=== PATIENT | male | born 1940 | race Caucasian/White ===

== ENCOUNTER 2017-03-23 12:37 | Emergency (ER) | payer MEDICARE ==
[2017-03-23 13:07] LABS: BASOPHILS 0.2 % (0-2); EOSINOPHILS 1.6 % (0-7); HEMOGLOBIN 18.7 g/dL (13.5-17.5); IMMATURE GRANULOCYTES 0.2 % (0-5); LYMPHOCYTES 16.7 % (15-50); MCH 30.4 pg (26.0-34.0); MCV 89.3 fL (80.0-100.0); MEAN PLATELET VOLUME 10.4 fL (7.4-10.4); MONOCYTES 9.9 % (2-11); NEUTROPHILS 71.4 % (40-80); PLATELET COUNT 142 10x3/uL (130-400); RBC 6.16 10x6/uL (4.20-6.10); WBC 6.5 10x3/uL (4.8-10.8)
[2017-03-23 13:28] LABS: ALBUMIN 3.8 g/dL (3.4-5.0); ALKALINE PHOSPHATASE 96 U/L (46-116); ALT (SGPT) 36 U/L (10-68); BILIRUBIN - TOTAL 0.86 mg/dL (0.2-1.3); CALC OSMOLALITY 275 mosm/kg (275-300); CARBON DIOXIDE 30.6 mmol/L (21.0-32.0); CHLORIDE - SERUM 100 mmol/L (98-107); CREATININE - SERUM 0.8 mg/dL (0.6-1.3); GLUCOSE 94 mg/dL (74-106); POTASSIUM - SERUM 5.3 mmol/L (3.5-5.1); PROTEIN - SERUM 7.4 g/dL (6.4-8.2); SODIUM 137 mmol/L (136-145); UREA NITROGEN 18 mg/dL (7-18); eGFR NON AFRICAN AMERICAN > 90 mL/min (90-120)
== END 2017-03-23 17:39 | disposition home or self-care (01) ==
LOC: D.ER 12:37
PROVIDERS: Family Medicine
DX: J44.1 Chronic obstructive pulmonary disease with (acute) exacerbation (principal); J20.9 Acute bronchitis, unspecified; F17.200 Nicotine dependence, unspecified, uncomplicated

== ENCOUNTER → 2017-07-17 19:47 | Outpatient (CLI) | payer MEDICARE | END | disposition home or self-care (01) | LOC: D.SLEEP 19:47 | DX: G47.33 Obstructive sleep apnea (adult) (pediatric) (principal) ==

== ENCOUNTER → 2017-08-02 12:34 | Outpatient (CLI) | payer MEDICARE | END | disposition home or self-care (01) | LOC: D.RAD 12:34 | DX: R13.10 Dysphagia, unspecified (principal) ==

== ENCOUNTER → 2017-08-28 12:21 | Outpatient (CLI) | payer MEDICARE ==
[2017-08-31 03:12] LABS: IMMUNOGLOBULIN E 43 IU/mL (0-100)
== END | disposition home or self-care (01) ==
LOC: D.LAB 08-27 13:00 → D.RT 08-27 14:00
PROVIDERS: Internal Medicine Pulmonary Disease
DX: J44.9 Chronic obstructive pulmonary disease, unspecified (principal)

== ENCOUNTER → 2017-11-16 10:52 | Outpatient (CLI) | payer MEDICARE ==
[2017-11-20 09:18] LABS: ANA REFLEX - DIRECT Negative (Negative)
[2017-11-20 17:12] LABS: ANCA - ANTIMYELOPEROXIDASE <9.0 U/mL (0.0-9.0); ANCA - ANTIPROTEINASE 3 <3.5 U/mL (0.0-3.5); ANCA - ATYPICAL <1:20 titer (Neg:<1:20); ANCA - CYTOPLASMIC <1:20 titer (Neg:<1:20); ANCA - PERINUCLEAR <1:20 titer (Neg:<1:20)
== END | disposition home or self-care (01) ==
LOC: D.LAB 10:15 → D.CT 11:00
PROVIDERS: Internal Medicine Pulmonary Disease
DX: J84.9 Interstitial pulmonary disease, unspecified (principal)

== ENCOUNTER → 2018-05-20 08:36 | Outpatient (CLI) | payer MEDICARE | END | disposition home or self-care (01) | LOC: D.RT 08:36 | DX: J84.9 Interstitial pulmonary disease, unspecified (principal); J44.9 Chronic obstructive pulmonary disease, unspecified ==

== ENCOUNTER 2018-06-26 13:45 | Inpatient (IN) | payer MEDICARE ==
[~2018-06-26] VITALS: Ht 180.3 cm; Wt 97.5 kg
[2018-06-26] MEDS ORDERED: CARDIZEM LA180 MG PO (13:54)
[2018-06-26] MEDS ORDERED: SINGULAIR10 MG PO (13:55)
[2018-06-26] MEDS ORDERED: ALBUTEROL2.5 MG/3 M (13:56)
[2018-06-26] MEDS ORDERED: MUCINEX DM ER1 EAC1 (13:56)
[2018-06-26] MEDS ORDERED: [UNRECOGNIZED DRUG - OTHER] (13:56)
[2018-06-26] MEDS ORDERED: BAYER CHEWABLE81 MG PO (13:57)
[2018-06-26 14:53] LABS: BASOPHILS 0.2 % (0-2); EOSINOPHILS 0.7 % (0-7); HEMATOCRIT 48.2 % (42.0-54.0); HEMOGLOBIN 15.9 g/dL (13.5-17.5); IMMATURE GRANULOCYTES 0.3 % (0-5); LYMPHOCYTES 10.9 % (15-50); MCH 28.6 pg (26.0-34.0); MCV 86.7 fL (80.0-100.0); MEAN PLATELET VOLUME 10.2 fL (7.4-10.4); MONOCYTES 8.6 % (2-11); NEUTROPHILS 79.3 % (40-80); PLATELET COUNT 145 10x3/uL (130-400); RBC 5.56 10x6/uL (4.20-6.10); RDW 15.2 % (11.5-14.5); WBC 12.4 10x3/uL (4.8-10.8)
[2018-06-26 14:55] VITALS: BP 123/52
[2018-06-26 15:22] LABS: APTT 31.4 SECONDS (22.8-39.4); INR 1.08 (0.85-1.17); PROTIME 13.5 SECONDS (11.6-15.0)
[2018-06-26 15:45] LABS: ALBUMIN 3.1 g/dL (3.4-5.0); ALKALINE PHOSPHATASE 70 U/L (46-116); ALT (SGPT) 26 U/L (10-68); BILIRUBIN - TOTAL 0.69 mg/dL (0.2-1.3); CALC OSMOLALITY 268 mosm/kg (275-300); CALCIUM 8.5 mg/dL (8.5-10.1); CARBON DIOXIDE 28.8 mmol/L (21.0-32.0); CHLORIDE - SERUM 96 mmol/L (98-107); CREATININE - SERUM 0.8 mg/dL (0.6-1.3); GLUCOSE 99 mg/dL (74-106); POTASSIUM - SERUM 4.3 mmol/L (3.5-5.1); PROTEIN - SERUM 6.9 g/dL (6.4-8.2); SODIUM 135 mmol/L (136-145); UREA NITROGEN 10 mg/dL (7-18); eGFR NON AFRICAN AMERICAN > 90 mL/min (90-120)
[2018-06-26 15:56] LABS: CKMB 1.4 U/L (0.0-3.6); CREATINE KINASE 101 UL (21-232); PRO BNP 305 pg/mL (0-450)
[2018-06-26 15:57] LABS: TROPONIN-I < 0.017 ng/mL (0.000-0.060)
[2018-06-26 16:01] VITALS: BP 113/50
[2018-06-26 17:35] VITALS: BP 117/63
--- NOTE | 2018-06-26 19:23 | NUR ---
PT RESTING IN BED. REFUSED MIRALAX. O2 @2 LITERS. NO S/S OF ACUTE DISTRESS. CL IN PLACE.
[2018-06-26 20:10] VITALS: BP 108/61
--- NOTE | 2018-06-26 23:27 | NUR ---
rec'd in bed talking on phone expiratory wheezing note chest bilat.02 2l nc no resp. distress observed. will continue to monitor for any chges and follow current plan of care.
[2018-06-27 01:01] VITALS: BP 97/64
--- NOTE | 2018-06-27 01:56 | NUR ---
I have reviewed this patient and I concur with the Shift Assessment completed by the Licensed Practical Nurse today this shift.
[2018-06-27 04:13] LABS: BASOPHILS 0.1 % (0-2); EOSINOPHILS 0 % (0-7); HEMATOCRIT 48.9 % (42.0-54.0); HEMOGLOBIN 16.2 g/dL (13.5-17.5); IMMATURE GRANULOCYTES 0.2 % (0-5); LYMPHOCYTES 4.5 % (15-50); MCH 28.6 pg (26.0-34.0); MCHC 33.1 g/dL (31.0-37.0); MCV 86.2 fL (80.0-100.0); MEAN PLATELET VOLUME 10.6 fL (7.4-10.4); NEUTROPHILS 94.2 % (40-80); PLATELET COUNT 147 10x3/uL (130-400); RBC 5.67 10x6/uL (4.20-6.10); WBC 10.1 10x3/uL (4.8-10.8)
[2018-06-27 04:26] LABS: CALC OSMOLALITY 276 mosm/kg (275-300); CALCIUM 8.8 mg/dL (8.5-10.1); CARBON DIOXIDE 31.1 mmol/L (21.0-32.0); CHLORIDE - SERUM 97 mmol/L (98-107); GLUCOSE 185 mg/dL (74-106); POTASSIUM - SERUM 4.4 mmol/L (3.5-5.1); SODIUM 136 mmol/L (136-145); UREA NITROGEN 13 mg/dL (7-18); eGFR NON AFRICAN AMERICAN 77 mL/min (90-120)
[2018-06-27 04:45] VITALS: BP 112/70
--- NOTE | 2018-06-27 07:46 | NUR ---
PT SITTING UP IN CHAIR. O2@2 LITERS NC. NO S/S OF ACUTE DISTRESS. CL IN PLACE.
[2018-06-27 09:23] VITALS: BP 121/65
[2018-06-27 12:17] VITALS: Ht 180.3 cm; Wt 97.5 kg
[2018-06-27 12:22] VITALS: BP 112/59
[2018-06-27 14:37] LABS: APPEARANCE CLEAR (CLEAR); COLOR YELLOW (YELLOW); GLUCOSE NEGATIVE (NEGATIVE); KETONE NEGATIVE (NEGATIVE); NITRITE NEGATIVE (NEGATIVE); PROTEIN TRACE mg/dL (NEGATIVE); SPECIFIC GRAVITY 1.015 (1.005-1.020)
[2018-06-27 14:38] LABS: BACTERIA MODERATE /hpf (NONE SEEN); BILIRUBIN NEGATIVE (NEGATIVE); EPITHELIAL CELLS 0-5 /hpf (0-5); MUCUS <1+ /lpf (NONE SEEN); RED CELLS - URINE RARE /hpf (0-5); UROBILINOGEN NORMAL (NORMAL); WHITE CELLS - URINE 0-5 /hpf (0-5)
[2018-06-27 17:53] VITALS: BP 112/58
--- NOTE | 2018-06-27 18:00 | NUR ---
PT SITTING UP IN CHAIR EATING DINNER. AT BEDSIDE. NO S/S OF ACUTE DISTRESS. CL IN PLACE.
[2018-06-27 21:57] VITALS: BP 108/55
[2018-06-28 05:01] LABS: BASOPHILS 0.1 % (0-2); EOSINOPHILS 0 % (0-7); HEMATOCRIT 44.9 % (42.0-54.0); IMMATURE GRANULOCYTES 0.4 % (0-5); LYMPHOCYTES 5.6 % (15-50); MCH 28.5 pg (26.0-34.0); MCHC 33.4 g/dL (31.0-37.0); MCV 85.2 fL (80.0-100.0); MEAN PLATELET VOLUME 11.1 fL (7.4-10.4); MONOCYTES 4.1 % (2-11); NEUTROPHILS 89.8 % (40-80); RBC 5.27 10x6/uL (4.20-6.10); WBC 11.2 10x3/uL (4.8-10.8)
[2018-06-28 05:02] LABS: PLATELET COUNT 194 10x3/uL (130-400)
[2018-06-28 05:05] VITALS: BP 100/40
[2018-06-28 05:35] LABS: ANION GAP 11.4 mmol/L (8-16); CALCIUM 8.3 mg/dL (8.5-10.1); CARBON DIOXIDE 29.7 mmol/L (21.0-32.0); CREATININE - SERUM 1.1 mg/dL (0.6-1.3); POTASSIUM - SERUM 4.1 mmol/L (3.5-5.1)
--- NOTE | 2018-06-28 08:02 | NUR ---
AWAKE AND ALERT. ORIENTED X3. NO C/O AT THIS TIME. LUNGS ARE CLEAR BUT DIMINISHED IN LOWER LOBES, NON PRODUCTIVE COUGH NOTED.SKIN IS INTACT WITHOUT REDNESS. SL TO RIGHT WRIST IS PATENT WITHOUT REDNESS AT INSERTION SITE. SITTING UP IN CHIAR AT BEDSIDE. DENIESNEEDS.
[2018-06-28 09:30] VITALS: BP 112/54
--- NOTE | 2018-06-28 09:30 | NUR ---
ATE ALL OF BREAKFAST. DENIES NEEDS. UP AT SINK PERFORMING ADL'S PER SELF.
--- NOTE | 2018-06-28 13:00 | NUR ---
RESTING QUIETLY IN BED. ATE MOST OF LUNCH. VISITOR AT BEDSIDE.
[2018-06-28 13:31] VITALS: BP 132/62
--- NOTE | 2018-06-28 15:03 | EC ---
PATIENT:MEL CAI DATE OF SERVICE: 06/26/18 SEX: M MEDICAL RECORD: [id number] DATE OF : 44 LOCATION:D.[facility] AGE OF PATIENT: 77 ADMISSION DATE: 06/26/18 REFERRING PHYSICIAN: INTERPRETING PHYSICIAN: VERNA BUNN MD ECHOCARDIOGRAM REPORT ECHO CHARGES 4 ECHO COMPLETE Date: 06/27/18 CLINICAL DIAGNOSIS: PULMONARY EDEMA/LV FUN HX OF CARIOMYOPATHY ECHOCARDIOGRAPHIC MEASUREMENTS (adult normal given) AC root (d.<3.7cm) 4.2 cm LV Septum d (<1.2 cm> 1.9 cm Valve Excursion 2.0 cm LV Septum (systole) 2.0 cm Left Atria (s.<4.0cm> 3.8 cm LVPW d(<1.2cm) 2.0 cm RV (d.<2.3cm) 4.6 cm LVPW (sytole) 2.3 cm LV diastole(<5.6CM) 6.2 cm MV E-F(>70mm/sec) cm LV systole 4.1 cm LVOT Diameter 2.5 cm MV exc.(>10mm) 2.0 cm Est.ejection fraction (50-75%) % DOPPLER: LVIT cm/sec A 75.0 cm/sec E 41.0 cm/sec LA cm/sec RVSP 17 mmHg LVOT 86 cm/sec AOP1/2T m/s Asc. Ao 115 cm/sec RVOT 101 cm/sec RA cm/sec PA 109 cm/sec AV Gradient Peak 5.25 mmHg AV Mean 2.53 mmHg AV Area 3.2 cm MV Gradient Peak 4.30 mmHg MV Mean 1.88 mmHg MV Area cm COMMENTS: Biologist Aide: Felicita MALDONADO Runner Worker: Lida Bunn TAPE# PACS Pericardial Effusion N DATE OF SERVICE: 06/27/2018 FINDINGS: 1. Left ventricular chamber size is within normal limits. Left ventricular systolic function is normal. Overall ejection fraction estimated at 55%. 2. Left atrium is within normal limits at 3.8 cm. Right atrium and right ventricular chamber sizes are mildly dilated. 3. Valvular structures have normal structure and motion. 4. Doppler interrogation reveals trace tricuspid regurgitation. No other valvular insufficiency or stenosis. Pulmonary systolic pressure is normal, ECHOCARDIOGRAM REPORT [id number] MEL CAI estimated at 17 mmHg. 5. No evidence of pericardial effusion or left ventricular thrombus. TRANSINT:[id number] Voice Confirmation ID: [id number] DOCUMENT ID: [id number] VERNA BUNN MD at 1503 CC: [id number] DICTATION DATE: 06/28/1807 GARDENING MANAGER: 06/28/18 1126 ADM IN [place] [id number] [place] [address]
--- NOTE | 2018-06-28 18:38 | NUR ---
REFUSED SUPPER TRAY. REQUESTED A PB&J SANDWICH. KITCHEN NOTIFIED. NO CHANGES NOTED. DENIES NEEDS. AT BEDSIDE.
[2018-06-28 19:00] VITALS: BP 120/56
--- NOTE | 2018-06-28 19:49 | NUR ---
PT ALERT AND ORIENTED AND UP AND CHAIR WHEN ENTERING THE ROOM. PT WEARING NASAL CANNULA AT 3 L. PT DOES GET OUT OF BREATH WHEN TALKING. LUNGS PRESENT WITH EXPIRATORY WHEEZES BILATERALLY. PT HAS INCENTIVE SPIROMETER ON BED SIDE TABLE. RETURN DEMONSTRATES HOW TO USE. RIGHT FOREARM IV SALINE LOCKED. NO COMPLAINTS OF PAIN AT THIS TIME. CPOC.
[2018-06-29] VITALS (7 sets, daily range): BP systolic 115–128; BP diastolic 45–60
--- NOTE | 2018-06-29 03:30 | NUR ---
I have reviewed this patient and I concur with the Shift Assessment completed by the Licensed Practical Nurse today this shift.
[2018-06-29 06:24] LABS: BASOPHILS 0 % (0-2); EOSINOPHILS 0 % (0-7); HEMATOCRIT 46.3 % (42.0-54.0); HEMOGLOBIN 15.3 g/dL (13.5-17.5); IMMATURE GRANULOCYTES 0.4 % (0-5); MCH 28.3 pg (26.0-34.0); MCV 85.6 fL (80.0-100.0); MEAN PLATELET VOLUME 10.7 fL (7.4-10.4); MONOCYTES 3.3 % (2-11); NEUTROPHILS 92.3 % (40-80); PLATELET COUNT 220 10x3/uL (130-400); RBC 5.41 10x6/uL (4.20-6.10); RDW 15.3 % (11.5-14.5); WBC 12.2 10x3/uL (4.8-10.8)
[2018-06-29 06:39] LABS: CALC OSMOLALITY 283 mosm/kg (275-300); CALCIUM 8.6 mg/dL (8.5-10.1); CARBON DIOXIDE 28.4 mmol/L (21.0-32.0); CHLORIDE - SERUM 100 mmol/L (98-107); CREATININE - SERUM 0.9 mg/dL (0.6-1.3); GLUCOSE 190 mg/dL (74-106); POTASSIUM - SERUM 4.3 mmol/L (3.5-5.1); SODIUM 137 mmol/L (136-145); UREA NITROGEN 26 mg/dL (7-18); eGFR NON AFRICAN AMERICAN 87 mL/min (90-120)
--- NOTE | 2018-06-29 08:00 | NUR ---
PT AAOX4 RESP EVEN AND NONLABORED NO SIGNS OF DISTRESS NOTED, PT C/O OF PAIN I EXPRESSED TO PT ON USE OF DIRECTOR OF TRAINING PUMP AGAIN, HE STATES "NOTHING IS HELPING HIS PAIN" I EXPRESSED TO THE PT THAT I WOULD TALK TO THE DR AND SEE WHAT ELSE COULD BE DONE CL IN REACH
--- NOTE | 2018-06-29 08:00 | NUR ---
PT AAOX4 RESP EVEN AND NONLABORED, NO SIGNS OF DISTRESS NOTED CL IN REACH WILL CONTINUE TO MONITOR
--- NOTE | 2018-06-29 18:39 | NUR ---
I have reviewed this patient and I concur with the Shift Assessment completed by the Licensed Practical Nurse today this shift.
--- NOTE | 2018-06-29 19:30 | NUR ---
PT ALERT AND ORIENTED WHEN ENTERING THE ROOM. UP IN CHAIR. LUNGS PRESENT WITH SLIGHT EXPIRATORY WHEEZES. PT HAS FREQUENT PRODUCTIVE COUGH. WEARING 3 L NC. RIGHT FOREARM IV FINISHING LEVAQUIN INFUSION. COMPLAINTS OF SORE THROAT. SPOKE WITH PT ABOUT NEW ORDER FOR CLORASEPTIC SPRAY. CALL LIGHT IN REACH.
[2018-06-30] VITALS: BP 121/63; BP 130/61
[2018-06-30 03:00] VITALS: BP 127/46
[2018-06-30 05:27] LABS: BASOPHILS 0 % (0-2); EOSINOPHILS 0 % (0-7); HEMATOCRIT 47.3 % (42.0-54.0); HEMOGLOBIN 15.5 g/dL (13.5-17.5); IMMATURE GRANULOCYTES 0.8 % (0-5); LYMPHOCYTES 5.6 % (15-50); MCH 28.5 pg (26.0-34.0); MCHC 32.8 g/dL (31.0-37.0); MCV 87.1 fL (80.0-100.0); MEAN PLATELET VOLUME 10.4 fL (7.4-10.4); MONOCYTES 3.1 % (2-11); NEUTROPHILS 90.5 % (40-80); PLATELET COUNT 220 10x3/uL (130-400); RBC 5.43 10x6/uL (4.20-6.10); RDW 15.2 % (11.5-14.5); WBC 11.2 10x3/uL (4.8-10.8)
[2018-06-30 05:49] LABS: CALC OSMOLALITY 287 mosm/kg (275-300); CALCIUM 8.6 mg/dL (8.5-10.1); CARBON DIOXIDE 30.4 mmol/L (21.0-32.0); CHLORIDE - SERUM 103 mmol/L (98-107); CREATININE - SERUM 0.8 mg/dL (0.6-1.3); GLUCOSE 169 mg/dL (74-106); POTASSIUM - SERUM 4.3 mmol/L (3.5-5.1); SODIUM 141 mmol/L (136-145); UREA NITROGEN 20 mg/dL (7-18); eGFR NON AFRICAN AMERICAN > 90 mL/min (90-120)
[2018-06-30 08:35] VITALS: BP 136/62
[2018-06-30 13:21] VITALS: BP 123/72
[2018-06-30 17:30] VITALS: BP 101/52
--- NOTE | 2018-06-30 19:19 | NUR ---
PT IN CHAIR AT BEDSIDE. SALINE LOCKED IV PER REQUEST. PT DENIES FURTHER NEEDS AT THIS TIME.
[2018-06-30 20:00] VITALS: BP 117/58
--- NOTE | 2018-07-01 02:09 | NUR ---
I have reviewed this patient and I concur with the Shift Assessment completed by the Licensed Practical Nurse today this shift.
[2018-07-01 03:00] VITALS: BP 142/79
[2018-07-01 03:53] LABS: BASOPHILS 0.1 % (0-2); EOSINOPHILS 0.6 % (0-7); HEMATOCRIT 50.9 % (42.0-54.0); HEMOGLOBIN 16.6 g/dL (13.5-17.5); IMMATURE GRANULOCYTES 1.5 % (0-5); LYMPHOCYTES 5.7 % (15-50); MCH 28.3 pg (26.0-34.0); MCHC 32.6 g/dL (31.0-37.0); MCV 86.9 fL (80.0-100.0); MEAN PLATELET VOLUME 10.6 fL (7.4-10.4); MONOCYTES 3.7 % (2-11); NEUTROPHILS 88.4 % (40-80); PLATELET COUNT 189 10x3/uL (130-400); RBC 5.86 10x6/uL (4.20-6.10); RDW 15.2 % (11.5-14.5); WBC 10.4 10x3/uL (4.8-10.8)
[2018-07-01 03:56] LABS: CALC OSMOLALITY 278 mosm/kg (275-300); CALCIUM 8.6 mg/dL (8.5-10.1); CARBON DIOXIDE 32.3 mmol/L (21.0-32.0); CHLORIDE - SERUM 99 mmol/L (98-107); CREATININE - SERUM 0.9 mg/dL (0.6-1.3); GLUCOSE 188 mg/dL (74-106); POTASSIUM - SERUM 4.5 mmol/L (3.5-5.1); SODIUM 135 mmol/L (136-145); UREA NITROGEN 24 mg/dL (7-18); eGFR NON AFRICAN AMERICAN 87 mL/min (90-120)
--- NOTE | 2018-07-01 06:20 | NUR ---
PT IN CHAIR. DENIES NEEDS
[2018-07-01 08:44] VITALS: BP 160/70
[2018-07-01 13:15] VITALS: BP 134/79
--- NOTE | 2018-07-01 13:33 | NUR ---
NUTRITION F/U PT TOLERATING AHA DIET. 50 TO 75% INTAKE RECENT MEALS. WILL CONTINUE TO PROVIDE DIET, MONITOR PO INTAKE. RD FOLLOWING
[2018-07-01 16:30] VITALS: BP 136/74
[2018-07-01 21:35] VITALS: BP 110/61
[2018-07-02 00:39] VITALS: BP 136/57
--- NOTE | 2018-07-02 03:21 | NUR ---
REC'D AT CHGE OF SHIFT SITTING UP BEDSIDE CHAIR WATCHING TV.DENIES ANY RESP. DIFFICULTY AT PRESENT TIME STATES FEELS SO MUCH BETTER. WILL CONTINUE TO MONITOR FOR ANY CHGES AND FOLLOE CURRENT PLAN OF CARE
[2018-07-02 04:44] VITALS: BP 145/73
--- NOTE | 2018-07-02 04:56 | NUR ---
I have reviewed this patient and I concur with the Shift Assessment completed by the Licensed Practical Nurse today this shift.
[2018-07-02 05:17] LABS: BASOPHILS 0.1 % (0-2); EOSINOPHILS 0 % (0-7); HEMATOCRIT 50.3 % (42.0-54.0); HEMOGLOBIN 16.9 g/dL (13.5-17.5); IMMATURE GRANULOCYTES 2.2 % (0-5); LYMPHOCYTES 4.8 % (15-50); MCH 28.7 pg (26.0-34.0); MCHC 33.6 g/dL (31.0-37.0); MCV 85.4 fL (80.0-100.0); MEAN PLATELET VOLUME 10.2 fL (7.4-10.4); MONOCYTES 2.7 % (2-11); NEUTROPHILS 90.2 % (40-80); PLATELET COUNT 225 10x3/uL (130-400); RBC 5.89 10x6/uL (4.20-6.10); RDW 14.8 % (11.5-14.5)
[2018-07-02 05:38] LABS: ALBUMIN 2.9 g/dL (3.4-5.0); ANION GAP 10.5 mmol/L (8-16); BILIRUBIN - TOTAL 0.44 mg/dL (0.2-1.3); CALCIUM 8.2 mg/dL (8.5-10.1); CARBON DIOXIDE 31.7 mmol/L (21.0-32.0); CREATININE - SERUM 1.1 mg/dL (0.6-1.3); MAGNESIUM - SERUM 2.1 mg/dL (1.8-2.4); POTASSIUM - SERUM 4.2 mmol/L (3.5-5.1); PROTEIN - SERUM 6.3 g/dL (6.4-8.2)
--- NOTE | 2018-07-02 07:43 | NUR ---
PT ALERT X 4. EXPIRATORY WHEEZES TO ALL PADILLA, 2L O2 PER NC. TELEMETRY IN PLACE. IV TO LEFT WRIST, PATENT, DRESSING CLEAN DRY AND INTACT. +1 EDMEMA TO BLE. PT SITTING UP IN CHAIR. REPORTING NO PAIN AT THIS TIME. BED LOW, CALL LIGHT IN REACH. NO OTHER NEEDS AT THIS TIME.
--- NOTE | 2018-07-02 07:57 | MORECARE ---
CASE MANAGEMENT DISCHARGE SUMMARY PATIENT: MEL CAI UNIT: [id number] ADM DATE: 06/26/18 AGE: 77 : 42 SEX: M ROOM/BED: D.2202 AUTHOR: HARVINDER LYNNE PHYSICIAN: REFERRING PHYSICIAN: RAGHAV VILLANUEVA MD DATE OF SERVICE: 07/02/18 Discharge Plan Patient Name: MEL CAI [facility] [facility] 1940 Planned Disposition: Home or Self Care Anticipated Discharge Date: Discharge Date: Expected LOS: Initial Reviewer: [email or web address] Initial Review Date: 06/26/2018 Generated: 07/02/18 8:57 am DCPIA - Discharge Planning Initial Assessment Updated by [email or web address]: Pat Oliveira on 07/02/18 7:56 am * Is the patient Alert and Oriented? Yes * How many steps to enter\exit or inside your home? few * PCP DR MALENA MERRITT IN [place] * Pharmacy [facility] * Preadmission Environment Home with Family * ADLs Independent * Equipment Nebulizer Oxygen * Other Equipment CONCENTRATOR * List name and contact numbers for known caregivers / representatives who currently or will assist patient after discharge: ZAKI CAI () [phone] * Verbal permission to speak to the caregivers and representatives has been obtained from the patient. N/A * Community resources currently utilized None * Additional services required to return to the preadmission environment? No * Can the patient safely return to the preadmission environment? Yes * Has this patient been hospitalized within the prior 30 days at any hospital? No Patient Name: MEL CAI Page [phone] at 0757 All edits/amendments must be made on the electronic document DICTATION DATE: 07/02/18756 BILLING SPECIALIST: SKIP 07/02/18756 RPT#: [id number] DC DATE: STATUS: ADM IN [facility] [address] [place] [address] END OF REPORT
--- NOTE | 2018-07-02 08:04 | MORECARE ---
CASE MANAGEMENT DISCHARGE SUMMARY PATIENT: MEL CAI UNIT: [id number] ADM DATE: 06/26/18 AGE: 77 : 42 SEX: M ROOM/BED: D.2202 AUTHOR: MAGED,DOC PHYSICIAN: REFERRING PHYSICIAN: RAGHAV VILLANUEVA MD DATE OF SERVICE: 07/02/18 Discharge Plan Patient Name: MEL ACI Facility: [facility]:[place] : 1940 Planned Disposition: Home or Self Care Anticipated Discharge Date: Discharge Date: Expected LOS: Initial Reviewer: [email or web address] Initial Review Date: 06/26/2018 Generated: 07/02/18 9:03 am Comments DCP- Discharge Planning Updated by [email or web address]: Pat Oliveira on 07/02/18 7:[address] Patient Name: MEL CAI Admission Status: ER Accout number: [id number] Admission Date: 06-26-2018 : 1940 Admission Diagnosis:FEVER, UNSPECIFIED Attending: RAGHAV VILLANUEVA Current LOS: 6 Anticipated DC Date: Planned Disposition: Home or Self Care Primary Insurance: [employer] ADV Discharge Planning Comments: CM met with patient to complete initial dc planning assessment. CM educated patient on the CM role and verbal consent given by patient to complete assessment. Patient lives at home with his where he is independent with his care. At discharge patient plans to return home and feels this is a safe discharge. CM discussed availability of home health, rehab services, and medical equipment. Patient stated that he has portable O2 concentrator and a O2 concentrator at home also a nebulizer. He was short of breath talking to me when I did his assessment. Patient denied known discharge needs at this time & did not want home health. CM will continue to follow and will assist as needed with dc plans/needs. Banking Officer: Pat Oliveira DCPIA - Discharge Planning Initial Assessment Updated by [email or web address]: Pat Oliveira on 07/02/18 7:56 am * Is the patient Alert and Oriented? Yes * How many steps to enter\exit or inside your home? few * PCP DR MALENA MERRITT IN [place] * Pharmacy [facility] * Preadmission Environment Home with Family * ADLs Independent * Equipment Nebulizer Oxygen * Other Equipment CONCENTRATOR * List name and contact numbers for known caregivers / representatives who currently or will assist patient after discharge: ZAKI CAI () [phone] * Verbal permission to speak to the caregivers and representatives has been obtained from the patient. N/A * Community resources currently utilized None * Additional services required to return to the preadmission environment? No * Can the patient safely return to the preadmission environment? Yes * Has this patient been hospitalized within the prior 30 days at any hospital? No Last DP export: 07/02/18 6:57 am Patient Name: MEL CAI Page [phone] at 0804 All edits/amendments must be made on the electronic document DICTATION DATE: 07/02/18802 FRAMING MILL OPERATOR: SKIP 07/02/18802 RPT#: [id number] DC DATE: STATUS: ADM IN [facility] [address] [place] [address] END OF REPORT
[2018-07-02 08:17] VITALS: BP 139/66
[2018-07-02 12:48] VITALS: BP 144/77
[2018-07-02 16:27] LABS: APPEARANCE CLEAR (CLEAR); BILIRUBIN NEGATIVE (NEGATIVE); COLOR YELLOW (YELLOW); GLUCOSE NEGATIVE (NEGATIVE); KETONE NEGATIVE (NEGATIVE); NITRITE NEGATIVE (NEGATIVE); PROTEIN NEGATIVE (NEGATIVE); UROBILINOGEN NORMAL (NORMAL)
[2018-07-02 16:34] VITALS: BP 121/64
[2018-07-02 21:12] VITALS: BP 117/66
[2018-07-03 05:09] VITALS: BP 132/77
[2018-07-03 06:39] LABS: BASOPHILS 0.1 % (0-2); EOSINOPHILS 0 % (0-7); HEMATOCRIT 52.2 % (42.0-54.0); HEMOGLOBIN 17.7 g/dL (13.5-17.5); IMMATURE GRANULOCYTES 4.1 % (0-5); LYMPHOCYTES 4.9 % (15-50); MCHC 33.9 g/dL (31.0-37.0); MCV 85.6 fL (80.0-100.0); MEAN PLATELET VOLUME 10.5 fL (7.4-10.4); MONOCYTES 2.7 % (2-11); NEUTROPHILS 88.2 % (40-80); PLATELET COUNT 237 10x3/uL (130-400); WBC 14.1 10x3/uL (4.8-10.8)
[2018-07-03 06:53] LABS: ALBUMIN 2.9 g/dL (3.4-5.0); ALKALINE PHOSPHATASE 67 U/L (46-116); ALT (SGPT) 124 U/L (10-68); BILIRUBIN - TOTAL 0.43 mg/dL (0.2-1.3); CARBON DIOXIDE 34.5 mmol/L (21.0-32.0); CHLORIDE - SERUM 97 mmol/L (98-107); POTASSIUM - SERUM 3.9 mmol/L (3.5-5.1); SODIUM 137 mmol/L (136-145); UREA NITROGEN 28 mg/dL (7-18); eGFR NON AFRICAN AMERICAN 77 mL/min (90-120)
[2018-07-03 06:55] LABS: CALC OSMOLALITY 283 mosm/kg (275-300); GLUCOSE 168 mg/dL (74-106)
--- NOTE | 2018-07-03 07:30 | NUR ---
PT SITTING UP ON SIDE OF BED. NO ACUTE DISTRESS NOTED. O2 @ 2L NC IN PLACE. SALINE LOC TO LEFT FOREARM, PATENT AND INTACT WITHOUT REDNESS. DENIES PAIN AT THIS TIME. CL WITHIN REACH. ENCOURAGED TO CALL WITH NEEDS. CONTINUE POC
[2018-07-03 09:35] VITALS: BP 141/89
[2018-07-03 13:58] VITALS: BP 127/64
[2018-07-03 18:01] VITALS: BP 115/72
[2018-07-03 21:11] VITALS: BP 133/76
--- NOTE | 2018-07-04 03:59 | NUR ---
REC'D. AT SHIFT CHGE.SITTING UP IN CHAIR DOING UPDRAFT TX.02 2L NC.NO RESP DIFFICULTY OBSERVED.DOES CONT TO C/O SOMR SOB ON MINIMAL EXERTION. WILL CONTINUE TO OBSURE FOR ANY RESP DIFFICULTY AND FOLLOW CURRENT PLAN OF CARE.
[2018-07-04 05:18] VITALS: BP 127/71
--- NOTE | 2018-07-04 05:27 | NUR ---
I AGREE WITH CREATIVE WRITING ENGLISH PROFESSOR ASSESSMENT.
[2018-07-04 07:19] LABS: BASOPHILS 0.1 % (0-2); EOSINOPHILS 0 % (0-7); HEMATOCRIT 53.1 % (42.0-54.0); HEMOGLOBIN 17.8 g/dL (13.5-17.5); IMMATURE GRANULOCYTES 2.9 % (0-5); LYMPHOCYTES 4.4 % (15-50); MCH 28.2 pg (26.0-34.0); MCHC 33.5 g/dL (31.0-37.0); MCV 84.2 fL (80.0-100.0); MEAN PLATELET VOLUME 10.6 fL (7.4-10.4); MONOCYTES 5.9 % (2-11); NEUTROPHILS 86.7 % (40-80); PLATELET COUNT 245 10x3/uL (130-400); RBC 6.31 10x6/uL (4.20-6.10); WBC 15.4 10x3/uL (4.8-10.8)
[2018-07-04 07:40] LABS: ALKALINE PHOSPHATASE 81 U/L (46-116); ALT (SGPT) 107 U/L (10-68); BILIRUBIN - TOTAL 0.55 mg/dL (0.2-1.3); CALC OSMOLALITY 278 mosm/kg (275-300); CALCIUM 8.2 mg/dL (8.5-10.1); CARBON DIOXIDE 32.5 mmol/L (21.0-32.0); CHLORIDE - SERUM 94 mmol/L (98-107); GLUCOSE 154 mg/dL (74-106); MAGNESIUM - SERUM 2.4 mg/dL (1.8-2.4); POTASSIUM - SERUM 4.1 mmol/L (3.5-5.1); PROTEIN - SERUM 6.3 g/dL (6.4-8.2); SODIUM 134 mmol/L (136-145); UREA NITROGEN 34 mg/dL (7-18); eGFR NON AFRICAN AMERICAN 77 mL/min (90-120)
--- NOTE | 2018-07-04 08:15 | NUR ---
PT SITTING UP IN CHAIR AT BEDSIDE. NO ACUTE DISTRESS NOTED AT THIS TIME. O2 @ 2L NC IN PLACE. DENIES PAIN AT THIS TIME. SALINE LOC TO LEFT FOREARM INTACT WITHOUT REDNESS OR EDEMA. DENIES FURTHER NEEDS AT THIS TIME. CL WITHIN REACH. ENCOURAGED TO CALL WITH NEEDS. CONTINUE POC
[2018-07-04 08:45] VITALS: BP 138/72
[2018-07-04 14:41] VITALS: BP 132/71
[2018-07-04 18:28] VITALS: BP 113/44
--- NOTE | 2018-07-05 03:48 | NUR ---
I CONCUR WITH FINISHED CLOTH EXAMINER ASSESSMENT.
[2018-07-05 04:36] VITALS: BP 133/66
[2018-07-05 06:19] LABS: BASOPHILS 0.1 % (0-2); EOSINOPHILS 0 % (0-7); HEMATOCRIT 51.8 % (42.0-54.0); HEMOGLOBIN 17.5 g/dL (13.5-17.5); IMMATURE GRANULOCYTES 1.8 % (0-5); LYMPHOCYTES 3.8 % (15-50); MCH 28.6 pg (26.0-34.0); MCHC 33.8 g/dL (31.0-37.0); MCV 84.6 fL (80.0-100.0); MEAN PLATELET VOLUME 11.2 fL (7.4-10.4); MONOCYTES 2.9 % (2-11); NEUTROPHILS 91.4 % (40-80); PLATELET COUNT 258 10x3/uL (130-400); RBC 6.12 10x6/uL (4.20-6.10); RDW 15.3 % (11.5-14.5); WBC 13.7 10x3/uL (4.8-10.8)
[2018-07-05 08:38] LABS: ALBUMIN 2.9 g/dL (3.4-5.0); ANION GAP 7.7 mmol/L (8-16); BILIRUBIN - TOTAL 0.7 mg/dL (0.2-1.3); CALCIUM 7.8 mg/dL (8.5-10.1); CARBON DIOXIDE 34.6 mmol/L (21.0-32.0); CREATININE - SERUM 1.1 mg/dL (0.6-1.3); MAGNESIUM - SERUM 2.5 mg/dL (1.8-2.4); POTASSIUM - SERUM 4.3 mmol/L (3.5-5.1); PROTEIN - SERUM 6.2 g/dL (6.4-8.2)
[2018-07-05 09:15] VITALS: BP 135/81
[2018-07-05 13:11] VITALS: BP 133/79
[2018-07-05 15:45] VITALS: BP 126/60
[2018-07-05 20:00] VITALS: BP 132/53
[2018-07-06] VITALS: BP 121/64
[2018-07-06 04:00] VITALS: BP 136/70
[2018-07-06 07:29] LABS: BASOPHILS 0.1 % (0-2); EOSINOPHILS 0 % (0-7); HEMATOCRIT 49.7 % (42.0-54.0); HEMOGLOBIN 16.5 g/dL (13.5-17.5); IMMATURE GRANULOCYTES 1.4 % (0-5); LYMPHOCYTES 3.6 % (15-50); MCH 28.3 pg (26.0-34.0); MCHC 33.2 g/dL (31.0-37.0); MCV 85.1 fL (80.0-100.0); MEAN PLATELET VOLUME 10.8 fL (7.4-10.4); MONOCYTES 2.8 % (2-11); NEUTROPHILS 92.1 % (40-80); PLATELET COUNT 210 10x3/uL (130-400); RBC 5.84 10x6/uL (4.20-6.10); RDW 15.2 % (11.5-14.5); WBC 13.6 10x3/uL (4.8-10.8)
[2018-07-06 07:55] LABS: ALBUMIN 2.6 g/dL (3.4-5.0); ALKALINE PHOSPHATASE 68 U/L (46-116); ALT (SGPT) 63 U/L (10-68); BILIRUBIN - TOTAL 0.61 mg/dL (0.2-1.3); CALC OSMOLALITY 279 mosm/kg (275-300); CALCIUM 7.8 mg/dL (8.5-10.1); CARBON DIOXIDE 31.4 mmol/L (21.0-32.0); CHLORIDE - SERUM 96 mmol/L (98-107); GLUCOSE 155 mg/dL (74-106); MAGNESIUM - SERUM 2.5 mg/dL (1.8-2.4); POTASSIUM - SERUM 4.5 mmol/L (3.5-5.1); PROTEIN - SERUM 5.5 g/dL (6.4-8.2); SODIUM 135 mmol/L (136-145); UREA NITROGEN 32 mg/dL (7-18); eGFR NON AFRICAN AMERICAN 77 mL/min (90-120)
--- NOTE | 2018-07-06 08:09 | NUR ---
PT ALERT X 4. BREATH SOUNDS DIMINISHED TO LOWER LOBES, EXPIRATORY WHEEZES, 2L O2 PER NC. TELEMETRY IN PLACE. IV TO LEFT FOREARM, SALINE LOCKED. PT REPORTING NO PAIN AT THIS TIME. SITTING UP IN CHAIR. BED LOW, CALL LIGHT IN REACH. NO OTHER NEEDS AT THIS TIME.
[2018-07-06 09:50] VITALS: BP 138/74
[2018-07-06 14:16] VITALS: BP 149/79
[2018-07-06 17:19] VITALS: BP 130/65
--- NOTE | 2018-07-06 20:00 | NUR ---
SITTING UP IN CHAIR AT BEDSIDE. ALERT AND ORIENTED X4. RESP EVEN AND NONLABORED. BBS EXP WHEEZES. PROD COUGH NOTED WITH LIGHT YELLOW SPUTUM. O2 @ 2L/NC. 1+ EDEMA NOTED TO RLE. TRACE EDEMA NOTED TO LLE. TELEMETRY SHOWS SR WITH RATE OF 65. SOB WITH MIN EXERTION. SALINE LOCK NOTED TO RT FOREARM. DENIES PAIN. NO DISTRESS. CL IN REACH.
[2018-07-06 20:32] VITALS: BP 122/67
--- NOTE | 2018-07-06 20:40 | NUR ---
SALINE LOCK LEAKING WHEN FLUSHED. IV CATH REMOVED FROM RT FOREARM AND RESITED WITH 22G TO RT FOREARM X1 ATTEMPT. PT ALIZE WELL.
--- NOTE | 2018-07-07 02:11 | NUR ---
LYING IN BED WITH EYES CLOSED. HAS RESTED WELL SO FAR THIS SHIFT. NO DISTRESS. RESP NONLABORED. CL IN REACH.
[2018-07-07 07:19] LABS: BASOPHILS 0 % (0-2); EOSINOPHILS 0 % (0-7); HEMATOCRIT 51.8 % (42.0-54.0); HEMOGLOBIN 17.3 g/dL (13.5-17.5); IMMATURE GRANULOCYTES 1.2 % (0-5); LYMPHOCYTES 3.7 % (15-50); MCH 28.5 pg (26.0-34.0); MCHC 33.4 g/dL (31.0-37.0); MCV 85.2 fL (80.0-100.0); MEAN PLATELET VOLUME 11.1 fL (7.4-10.4); MONOCYTES 2.8 % (2-11); NEUTROPHILS 92.3 % (40-80); PLATELET COUNT 225 10x3/uL (130-400); RBC 6.08 10x6/uL (4.20-6.10); RDW 15.3 % (11.5-14.5); WBC 15.5 10x3/uL (4.8-10.8)
[2018-07-07 07:49] LABS: ALBUMIN 2.9 g/dL (3.4-5.0); ALKALINE PHOSPHATASE 69 U/L (46-116); ALT (SGPT) 61 U/L (10-68); BILIRUBIN - TOTAL 0.96 mg/dL (0.2-1.3); CALC OSMOLALITY 277 mosm/kg (275-300); CARBON DIOXIDE 31.5 mmol/L (21.0-32.0); CHLORIDE - SERUM 97 mmol/L (98-107); GLUCOSE 159 mg/dL (74-106); POTASSIUM - SERUM 4.6 mmol/L (3.5-5.1); SODIUM 134 mmol/L (136-145); UREA NITROGEN 31 mg/dL (7-18); eGFR NON AFRICAN AMERICAN 77 mL/min (90-120)
--- NOTE | 2018-07-07 08:04 | NUR ---
PT ALERT X 4. EXPIRATORY WHEEZES TO ALL PADILLA, 2L O2 PER NC. TELEMETRY IN PLACE. IV TO RIGHT FOREARM, PATENT, DRESSING CLEAN DRY AND INTACT. PT REPORTING NO PAIN AT THIS TIME. UP TO CHAIR, BED LOW, CALL LIGHT IN REACH, NO OTHER NEEDS AT THIS TIME.
[2018-07-07 10:12] VITALS: BP 133/72
[2018-07-07 14:37] VITALS: BP 139/76
[2018-07-07 18:17] VITALS: BP 152/65
--- NOTE | 2018-07-07 19:50 | NUR ---
ALERT AND ORIENTED X4. SITTING UP IN CHAIR. RESP IRREG. SOB NOTED. PROD COUGH WITH YELLOW SPUTUM REPORTED. BBS WHEEZES. O2 @ 2L/NC. TELEMETRY SHOWS SR WITH BBB WITH RATE OF 69. 2+ EDEMA NOTED TO RLE. 1+ EDEMA NOTED TO LLE. SALINE LOCK NOTED TO RT FOREARM. DENIES PAIN. CL IN REACH.
[2018-07-07 20:00] VITALS: BP 132/70
--- NOTE | 2018-07-07 23:55 | NUR ---
IV LEAKING IN RT FOREARM. IV CATH REMOVED. 22G INSERTED IN RT INNER FOREARM AFTER ATTEMPT X2. PT ALIZE WELL.
[2018-07-08] VITALS: BP 142/77
--- NOTE | 2018-07-08 03:52 | NUR ---
HAS RESTED WELL TONIGHT. NO DISTRESS. CL IN REACH.
[2018-07-08 04:00] VITALS: BP 124/54
[2018-07-08 08:00] VITALS: BP 126/69
[2018-07-08 08:01] LABS: BASOPHILS 0 % (0-2); EOSINOPHILS 0 % (0-7); HEMATOCRIT 49.3 % (42.0-54.0); HEMOGLOBIN 16.4 g/dL (13.5-17.5); IMMATURE GRANULOCYTES 0.8 % (0-5); LYMPHOCYTES 2.6 % (15-50); MCH 28.2 pg (26.0-34.0); MCHC 33.3 g/dL (31.0-37.0); MCV 84.9 fL (80.0-100.0); MEAN PLATELET VOLUME 11.3 fL (7.4-10.4); MONOCYTES 4.7 % (2-11); NEUTROPHILS 91.9 % (40-80); PLATELET COUNT 241 10x3/uL (130-400); RBC 5.81 10x6/uL (4.20-6.10); RDW 15.3 % (11.5-14.5); WBC 18.1 10x3/uL (4.8-10.8)
[2018-07-08 08:27] LABS: ALBUMIN 2.6 g/dL (3.4-5.0); ALKALINE PHOSPHATASE 70 U/L (46-116); ALT (SGPT) 53 U/L (10-68); BILIRUBIN - TOTAL 0.67 mg/dL (0.2-1.3); CALC OSMOLALITY 280 mosm/kg (275-300); CALCIUM 7.8 mg/dL (8.5-10.1); CARBON DIOXIDE 30.3 mmol/L (21.0-32.0); CHLORIDE - SERUM 100 mmol/L (98-107); CREATININE - SERUM 0.9 mg/dL (0.6-1.3); GLUCOSE 107 mg/dL (74-106); PROTEIN - SERUM 5.4 g/dL (6.4-8.2); SODIUM 137 mmol/L (136-145); UREA NITROGEN 32 mg/dL (7-18); eGFR NON AFRICAN AMERICAN 87 mL/min (90-120)
[2018-07-08] MEDS ORDERED: BROVANA15 MCG/2 M INH (11:18)
[2018-07-08] MEDS ORDERED: IPRAT-ALBUT 0.5-3 ML INH (11:18)
[2018-07-08] MEDS ORDERED: PULMICORT0.5 MG/21 UPD (11:19)
[2018-07-08] MEDS ORDERED: FLUTICASONE PRO16 GM NASAL (11:20)
[2018-07-08] MEDS ORDERED: DALIRESP500 MCG PO (11:20)
[2018-07-08] MEDS ORDERED: PROTONIX40 MG PO (11:21)
[2018-07-08] MEDS ORDERED: PREDNISONE10 MG PO (11:22)
--- NOTE | 2018-07-08 12:06 | NUR ---
IV CATH DC'ED IN RIGHT FOREARM. TIP INTACT. PLACED A 20 G IN LEFT FOREARM. TOLERATED WELL. 1ST ATTEMPT. NO FURTHER NEEDS AT THIS TIME
[2018-07-08 14:00] VITALS: BP 126/74; BP 137/77
--- NOTE | 2018-07-08 14:39 | NUR ---
IV SALINE LOCKED. ABX ARE DONE FOR THIS TIME. AT BEDSIDE. PATIENT SITTING UP ON SIDE OF BED. NO FURTHER NEEDS AT THIS TIME.
--- NOTE | 2018-07-08 15:51 | MORECARE ---
CASE MANAGEMENT DISCHARGE SUMMARY PATIENT: MEL CAI UNIT: [id number] ADM DATE: 06/26/18 AGE: 77 : 42 SEX: M ROOM/BED: D.2202 AUTHOR: MAGEDDOC PHYSICIAN: REFERRING PHYSICIAN: RAGHAV VILLANUEVA MD DATE OF SERVICE: 07/08/18 Discharge Plan Patient Name: MEL CAI Facility: [facility]:[place] : 1940 Planned Disposition: Home or Self Care Anticipated Discharge Date: Discharge Date: Expected LOS: Initial Reviewer: [email or web address] Initial Review Date: 06/26/2018 Generated: 07/08/18 4:51 pm Comments DCP- Discharge Planning Updated by [email or web address]: Pat Oliveira on 07/08/18 2:[address] PATIENT DISCHARGING HOME TODAY, NO NEEDS. IMM SERVED AND EXPLAINED AT BEDSIDE. CM TO FOLLOW AND ASSIST NEEDED DCP- Discharge Planning Updated by [email or web address]: Pat Oliveira on 07/02/18 7:[address] Patient Name: MEL CAI Admission Status: ER Accout number: [id number] Admission Date: 06-26-2018 : 1940 Admission Diagnosis:FEVER, UNSPECIFIED Attending: RAGHAV VILLANUEVA Current LOS: 6 Anticipated DC Date: Planned Disposition: Home or Self Care Primary Insurance: [facility] Discharge Planning Comments: CM met with patient to complete initial dc planning assessment. CM educated patient on the CM role and verbal consent given by patient to complete assessment. Patient lives at home with his where he is independent with his care. At discharge patient plans to return home and feels this is a safe discharge. CM discussed availability of home health, rehab services, and medical equipment. Patient stated that he has portable O2 concentrator and a O2 concentrator at home also a nebulizer. He was short of breath talking to me when I did his assessment. Patient denied known discharge needs at this time & did not want home health. CM will continue to follow and will assist as needed with dc plans/needs. Arc Cutter Plasma Arc: Pat Oliveira DCPIA - Discharge Planning Initial Assessment Updated by [email or web address]: Pat Oliveira on 07/02/18 7:56 am * Is the patient Alert and Oriented? Yes * How many steps to enter\exit or inside your home? few * PCP DR MALENA MERRITT IN [place] * Pharmacy [facility] * Preadmission Environment Home with Family * ADLs Independent * Equipment Nebulizer Oxygen * Other Equipment CONCENTRATOR * List name and contact numbers for known caregivers / representatives who currently or will assist patient after discharge: ZAKI CAI () [phone] * Verbal permission to speak to the caregivers and representatives has been obtained from the patient. N/A * Community resources currently utilized None * Additional services required to return to the preadmission environment? No * Can the patient safely return to the preadmission environment? Yes * Has this patient been hospitalized within the prior 30 days at any hospital? No Coverage Notice Reviewer: [email or web address] Ruel Oliveira Notice Issued Date-Time: 07/08/2018 15:20 Notice Type: IM Discharge Notice Notice Delivered To: Patient Relationship to Patient: Shank Stitcher Name: Delivery Method: HAND - Hand Delivered Kira Days: Prior Verbal Notification: Recipient Understood Notice: Yes Recipient Signature: Yes Med Rec Note Co-signed by Attending: Coverage Notice Comment: Last DP export: 07/02/18 7:03 am Patient Name: MEL CAI Page [id number] at 1551 All edits/amendments must be made on the electronic document DICTATION DATE: 07/08/18 155 MILLING/POLISHING OPERATOR: SKIP 07/08/181550 RPT#: [id number] DC DATE: STATUS: ADM IN [facility] [address] [place] [address] END OF REPORT
--- NOTE | 2018-07-08 17:00 | NUR ---
IV THERAPY DC'ED WITH TIP INTACT. DISCHARGE INSTRUCTIONS GIVEN. VOICED UNDERSTANDING. WHEELED PATIENT DOWNSTAIRS.
--- NOTE | 2018-07-16 15:51 | MORECARE ---
CASE MANAGEMENT DISCHARGE SUMMARY PATIENT: MEL CAI UNIT: [id number] ADM DATE: 06/26/18 AGE: 77 : 42 SEX: M ROOM/BED: D.2202 AUTHOR: HARVINDER LYNNE PHYSICIAN: REFERRING PHYSICIAN: RAGHAV VILLANUEVA MD DATE OF SERVICE: 07/16/18 Discharge Plan Patient Name: MEL CAI Facility: [facility]:[place] : 1940 Planned Disposition: Home or Self Care Anticipated Discharge Date: Discharge Date: 07/08/2018 Expected LOS: Initial Reviewer: [email or web address] Initial Review Date: 06/26/2018 Generated: 07/16/18 4:51 pm Comments DCP- Discharge Planning Updated by [email or web address]: Pat Oliveira on 07/08/18 2:[address] PATIENT DISCHARGING HOME TODAY, NO NEEDS. IMM SERVED AND EXPLAINED AT BEDSIDE. CM TO FOLLOW AND ASSIST NEEDED DCP- Discharge Planning Updated by [email or web address]: Pat Oliveira on 07/02/18 7:[address] Patient Name: MEL CAI Admission Status: ER Accout number: [id number] Admission Date: 06-26-2018 : 1940 Admission Diagnosis:FEVER, UNSPECIFIED Attending: RAGHAV VILLANUEVA Current LOS: 6 Anticipated DC Date: Planned Disposition: Home or Self Care Primary Insurance: [employer] ADV Discharge Planning Comments: CM met with patient to complete initial dc planning assessment. CM educated patient on the CM role and verbal consent given by patient to complete assessment. Patient lives at home with his where he is independent with his care. At discharge patient plans to return home and feels this is a safe discharge. CM discussed availability of home health, rehab services, and medical equipment. Patient stated that he has portable O2 concentrator and a O2 concentrator at home also a nebulizer. He was short of breath talking to me when I did his assessment. Patient denied known discharge needs at this time & did not want home health. CM will continue to follow and will assist as needed with dc plans/needs. Biostatistics Professor: Pat Oliveira DCPIA - Discharge Planning Initial Assessment Updated by [email or web address]: Pat Oliveira on 07/02/18 7:56 am * Is the patient Alert and Oriented? Yes * How many steps to enter\exit or inside your home? few * PCP DR MALENA MERRITT IN [place] * Pharmacy [facility] * Preadmission Environment Home with Family * ADLs Independent * Equipment Nebulizer Oxygen * Other Equipment CONCENTRATOR * List name and contact numbers for known caregivers / representatives who currently or will assist patient after discharge: ZAKI CAI () [phone] * Verbal permission to speak to the caregivers and representatives has been obtained from the patient. N/A * Community resources currently utilized None * Additional services required to return to the preadmission environment? No * Can the patient safely return to the preadmission environment? Yes * Has this patient been hospitalized within the prior 30 days at any hospital? No Coverage Notice Reviewer: [email or web address] Ruel Oliveira Notice Issued Date-Time: 07/08/2018 15:20 Notice Type: IM Discharge Notice Notice Delivered To: Patient Relationship to Patient: Business Analysis Analyst Name: Delivery Method: HAND - Hand Delivered Kira Days: Prior Verbal Notification: Recipient Understood Notice: Yes Recipient Signature: Yes Med Rec Note Co-signed by Attending: Coverage Notice Comment: Last DP export: 07/08/18 2:51 pm Patient Name: MEL CAI Page 47705 at 1551 All edits/amendments must be made on the electronic document DICTATION DATE: 07/16/181549 DIRECTOR INSTITUTION: SKIP 07/16/181549 RPT#: [id number] DC DATE:07/08/18 STATUS: DIS IN [facility] [address] [place] [address] END OF REPORT
== END 2018-07-08 17:12 | disposition home or self-care (01) | DRG 177 ==
LOC: D.ER 13:45 → D.MS 15:56
PROVIDERS: Emergency Medicine; Family Medicine; ADMIT Internal Medicine Nephrology; ATTEND Internal Medicine Nephrology
DX: J15.6 Pneumonia due to other Gram-negative bacteria (principal); J96.21 Acute and chronic respiratory failure with hypoxia; I50.23 Acute on chronic systolic (congestive) heart failure; J44.0 Chronic obstructive pulmonary disease with (acute) lower respiratory infection; J44.1 Chronic obstructive pulmonary disease with (acute) exacerbation; F17.213 Nicotine dependence, cigarettes, with withdrawal; D75.1 Secondary polycythemia; E66.9 Obesity, unspecified; Z68.30 Body mass index [BMI] 30.0-30.9, adult; I50.9 Heart failure, unspecified

== ENCOUNTER → 2018-11-20 11:21 | Outpatient (CLI) | payer MEDICARE ==
[2018-06-27 12:17] VITALS: BMI 29.9
[~2018-11-20 11:21] MED LIST: ALBUTEROL2.5 MG/3 M; BAYER CHEWABLE81 MG PO; BROVANA15 MCG/2 M INH; CARDIZEM LA180 MG PO; DALIRESP500 MCG PO; FLUTICASONE PRO16 GM NASAL; IPRAT-ALBUT 0.5-3 ML INH; MUCINEX DM ER1 EAC1; PREDNISONE10 MG PO; PROTONIX40 MG PO; PULMICORT0.5 MG/21 UPD; SINGULAIR10 MG PO; [UNRECOGNIZED DRUG - OTHER]
[2018-11-20 18:23] LABS: BASOPHILS 0.5 % (0-2); EOSINOPHILS 1.1 % (0-7); HEMATOCRIT 50.6 % (42.0-54.0); HEMOGLOBIN 17.3 g/dL (13.5-17.5); IMMATURE GRANULOCYTES 0.3 % (0-5); LYMPHOCYTES 27.9 % (15-50); MCH 27.7 pg (26.0-34.0); MCHC 34.2 g/dL (31.0-37.0); MEAN PLATELET VOLUME 12.9 fL (7.4-10.4); MONOCYTES 8.2 % (2-11); PLATELET COUNT 208 10x3/uL (130-400); RBC 6.25 10x6/uL (4.20-6.10); RDW 14.3 % (11.5-14.5); WBC 6.5 10x3/uL (4.8-10.8)
[2018-11-22 13:10] LABS: TESTOSTERONE - FREE 4.1 pg/mL (6.6-18.1); TESTOSTERONE - SERUM 423 ng/dL (264-916)
== END | disposition home or self-care (01) ==
LOC: D.LABREF 11:21
PROVIDERS: ATTEND Internal Medicine Pulmonary Disease
DX: R53.83 Other fatigue (principal)

== ENCOUNTER → 2019-09-26 07:52 | Outpatient (CLI) | payer MEDICARE ==
[2018-06-27 12:17] VITALS: BMI 29.9
== END | disposition home or self-care (01) ==
LOC: D.LAB 07:52
PROVIDERS: ATTEND Internal Medicine Pulmonary Disease
DX: J44.9 Chronic obstructive pulmonary disease, unspecified (principal)

== ENCOUNTER → 2019-09-29 10:19 | Outpatient (CLI) | payer MEDICARE ==
[2018-06-27 12:17] VITALS: BMI 29.9
== END | disposition home or self-care (01) ==
LOC: D.RT 10:19
PROVIDERS: ATTEND Internal Medicine Pulmonary Disease
DX: J84.9 Interstitial pulmonary disease, unspecified (principal)

== ENCOUNTER → 2019-11-03 11:14 | Outpatient (CLI) | payer MEDICARE ==
[2018-06-27 12:17] VITALS: BMI 29.9
[2019-11-03 11:50] LABS: BASOPHILS 0.2 % (0-2); EOSINOPHILS 0.8 % (0-7); HEMATOCRIT 54.2 % (42.0-54.0); HEMOGLOBIN 18.3 g/dL (13.5-17.5); IMMATURE GRANULOCYTES 0.2 % (0-5); LYMPHOCYTES 24.6 % (15-50); MCH 28.1 pg (26.0-34.0); MCHC 33.8 g/dL (31.0-37.0); MCV 83.3 fL (80.0-100.0); MEAN PLATELET VOLUME 10.8 fL (7.4-10.4); MONOCYTES 8.7 % (2-11); NEUTROPHILS 65.5 % (40-80); PLATELET COUNT 203 10x3/uL (130-400); RDW 15.8 % (11.5-14.5); WBC 8.9 10x3/uL (4.8-10.8)
[2019-11-03 14:38] LABS: RBC 6.51 10x6/uL (4.20-6.10)
== END | disposition home or self-care (01) ==
LOC: D.LAB 11:14 → D.CT 11:30
PROVIDERS: ATTEND Internal Medicine Pulmonary Disease
DX: J84.112 Idiopathic pulmonary fibrosis (principal); J18.9 Pneumonia, unspecified organism

== ENCOUNTER → 2019-11-05 10:55 | Outpatient (CLI) | payer MEDICARE ==
[2018-06-27 12:17] VITALS: BMI 29.9
== END | disposition home or self-care (01) ==
LOC: D.LAB 10:55
PROVIDERS: ATTEND Internal Medicine Pulmonary Disease
DX: J18.1 Lobar pneumonia, unspecified organism (principal)

== ENCOUNTER 2019-12-15 08:43 | Day surgery (SDC) | payer MEDICARE ==
[~2019-12-15] VITALS: Ht 180.3 cm; Wt 95.5 kg
[2019-12-15 09:36] LABS: APTT 37.3 SECONDS (22.8-39.4); INR 0.93 (0.85-1.17); PROTIME 12.4 SECONDS (11.6-15.0)
[2019-12-15 09:38] LABS: CALC OSMOLALITY 272 mosm/kg (275-300); CALCIUM 8.8 mg/dL (8.5-10.1); CARBON DIOXIDE 26.5 mmol/L (21.0-32.0); CHLORIDE - SERUM 102 mmol/L (98-107); GLUCOSE 97 mg/dL (74-106); POTASSIUM - SERUM 4.4 mmol/L (3.5-5.1); SODIUM 136 mmol/L (136-145); UREA NITROGEN 16 mg/dL (7-18); eGFR NON AFRICAN AMERICAN 77 mL/min (90-120)
[2019-12-15 09:58] LABS: BASOPHILS 0.2 % (0-2); EOSINOPHILS 1.5 % (0-7); HEMATOCRIT 52.5 % (42.0-54.0); HEMOGLOBIN 17.6 g/dL (13.5-17.5); IMMATURE GRANULOCYTES 0.2 % (0-5); LYMPHOCYTES 21.5 % (15-50); MCH 28.1 pg (26.0-34.0); MCHC 33.5 g/dL (31.0-37.0); MCV 83.7 fL (80.0-100.0); MEAN PLATELET VOLUME 10.6 fL (7.4-10.4); MONOCYTES 7.9 % (2-11); NEUTROPHILS 68.7 % (40-80); PLATELET COUNT 192 10x3/uL (130-400); RBC 6.27 10x6/uL (4.20-6.10); WBC 8.8 10x3/uL (4.8-10.8)
[2019-12-15] MEDS ORDERED: OMEPRAZOLE40 MG PO (10:45)
[2019-12-15] MEDS ORDERED: VITAMIN A10000 UNIT PO (10:47)
[2019-12-15] MEDS ORDERED: ASCORBIC ACID500 MG PO (10:47)
[2019-12-15 10:54] VITALS: Ht 180.3 cm; Wt 95.5 kg
[2019-12-15 12:38] LABS: ERYTHROCYTE SEDIMENTATION RATE 6 mm/hr (0-20)
--- NOTE | 2019-12-15 13:41 | NUR ---
1338 DENIES PROBLEMS BREATHING, DRESSING CDI, STATES ONLY HUNGRY, FINGER FOOD DIET ORDERED.
--- NOTE | 2019-12-15 13:42 | NUR ---
1340 SEE POST PROCEDURE CHECKLIST FOR VITAL SIGN TRENDS
--- NOTE | 2019-12-15 13:45 | NUR ---
1346 FINGER FOOD DIET SERVED.
--- NOTE | 2019-12-15 14:12 | NUR ---
1412 PORT CXR DONE.
== END 2019-12-15 16:35 | disposition home or self-care (01) ==
LOC: D.CT 08:43
PROVIDERS: Radiology Diagnostic Radiology; ATTEND Internal Medicine Pulmonary Disease
DX: R91.1 Solitary pulmonary nodule (principal); J44.9 Chronic obstructive pulmonary disease, unspecified; R93.89 Abnormal findings on diagnostic imaging of other specified body structures; J45.909 Unspecified asthma, uncomplicated; J18.1 Lobar pneumonia, unspecified organism; J84.112 Idiopathic pulmonary fibrosis; R94.2 Abnormal results of pulmonary function studies; R05 Cough; K21.9 Gastro-esophageal reflux disease without esophagitis; Z72.0 Tobacco use; G47.36 Sleep related hypoventilation in conditions classified elsewhere; J96.11 Chronic respiratory failure with hypoxia; Z87.09 Personal history of other diseases of the respiratory system; T17.928A Food in respiratory tract, part unspecified causing other injury, initial encounter; I10 Essential (primary) hypertension; E78.5 Hyperlipidemia, unspecified; R53.83 Other fatigue; D75.1 Secondary polycythemia; R25.1 Tremor, unspecified; R50.9 Fever, unspecified

== ENCOUNTER → 2020-01-16 11:36 | Outpatient (CLI) | payer MEDICARE ==
[2019-12-15 10:54] VITALS: BMI 29.3
[~2020-01-16 11:36] MED LIST changes: +ASCORBIC ACID500 MG PO; +OMEPRAZOLE40 MG PO; +VITAMIN A10000 UNIT PO
== END | disposition home or self-care (01) ==
LOC: D.LAB 11:36
PROVIDERS: ATTEND Internal Medicine Pulmonary Disease
DX: J44.9 Chronic obstructive pulmonary disease, unspecified (principal)

== ENCOUNTER → 2020-01-20 07:37 | Outpatient (CLI) | payer MEDICARE ==
[2019-12-15 10:54] VITALS: BMI 29.3
== END | disposition home or self-care (01) ==
LOC: D.RT 07:37
PROVIDERS: ATTEND Internal Medicine Pulmonary Disease
DX: J44.9 Chronic obstructive pulmonary disease, unspecified (principal)